=== PATIENT | male | born 1985 | race Two or more races ===

== ENCOUNTER 2025-03-16 12:16 | Emergency (ER) | payer OTHER, SELFPAY ==
[2025-03-16 12:51] VITALS: BP 131/79; PULSE 71; RESP 18; TEMP 37.2; O2SAT 98; BMI 27.7
--- NOTE | 2025-03-16 12:55 | XR_ITS ---
Examination: Lumbar spine 3 views Technique one AP lateral coned lateral lower lumbar spine 3 views Date and time: March 16, 2025 12:21 PM INDICATIONS: Patient fell 2 days ago with injury to the lower back, lower back pain. FINDINGS: Adequate alignment lumbar vertebral bodies. No lumbar fracture. Mild distention posteriorly L5-S1. IMPRESSION: No lumbar fracture.
--- NOTE | 2025-03-16 15:55 | PD.EDBACK ---
ED Back Injury Pain RME/HPI General Chief Complaint: Back Pain/Injury Stated Complaint: LOWER BACK PAIN, FELL AT WORK, SENT BY BOSS Time Seen by Provider: 03/16/25 12:52 Source: patient Arrival date/time: 03/16/25 12:16 40-year-old male with no known medical history presents to the emergency room with a chief complaint of tenderness and pain to his lumbar area of his spine after a fall that occurred at work 1 hour ago Mode of arrival: ambulatory Limitations: no limitations Related Data Allergies Allergy/AdvReac Type Severity Reaction Status Date / Time No Known Allergies Allergy Verified 03/16/25 12:18 Review of Systems Review of Systems Systems Reviewed: All systems reviewed, normal except as documented Constitutional Constitutional: Reports system reviewed and no additional complaints, except as documented, Denies fatigue, Denies fever(s), Denies headache(s) and Denies weakness Eyes Eyes: Reports system reviewed and no additional complaints, except as documented, Denies blurry vision and Denies change in vision ENT Ears, Nose, Mouth, and Throat: Reports system reviewed and no additional complaints, except as documented, Denies otalgia, Denies headache(s), Denies nasal congestion, Denies throat swelling and Denies vertigo Cardiovascular Cardiovascular: Reports system reviewed and no additional complaints, except as documented, Denies chest pain, Denies dyspnea and Denies dyspnea on exertion Respiratory Respiratory: Reports system reviewed and no additional complaints, except as documented, Denies chest congestion, Denies cough, Denies dyspnea, Denies dyspnea on exertion and Denies wheezing Gastrointestinal Gastrointestinal: Reports system reviewed and no additional complaints, except as documented, Denies abdominal pain, Denies cramping, Denies nausea and Denies vomiting Genitourinary Genitourinary: Reports system reviewed and no additional complaints, except as documented, Denies dysuria and Denies hematuria Musculoskeletal Musculoskeletal: Reports system reviewed and no additional complaints, except as documented and Reports back pain Integumentary/Breasts Skin/Breast: Reports system reviewed and no additional complaints, except as documented and Denies wounds Neurologic Neurologic: Reports system reviewed and no additional complaints, except as documented, Denies confusion, Denies headache(s), Denies lack of coordination, Denies vertigo and Denies weakness Psychiatric Psychiatric: Reports system reviewed and no additional complaints, except as documented, Denies anxiety, Denies confusion, Denies depression, Denies paranoia, Denies suicidal ideation and Denies tactile hallucinations Endocrine Endocrine: Reports system reviewed and no additional complaints, except as documented and Denies fatigue Hematologic/Lymphatic Hematologic/Lymphatic: Reports system reviewed and no additional complaints, except as documented and Denies lymphadenopathy Allergic/Immunologic Allergic/Immunologic: Reports system reviewed and no additional complaints, except as documented, Denies throat swelling, Denies urticaria and Denies wheezing Past Medical History Social History SMOKING STATUS: Never smoker ED Exam General Limitations: Present no limitations General appearance: Present alert and in no apparent distress Head Head exam: Present atraumatic Eye Eye exam: Present normal appearance, PERRL and EOMI ENT ENT exam: Present normal exam, normal oropharynx and mucous membranes moist Neck Neck exam: Present normal inspection, full ROM and trachea midline Chest Chest inspection: Present normal inspection and symmetric chest wall rise Respiratory Respiratory exam: Present normal lung sounds bilaterally Cardiovascular Cardiovascular exam: Present regular rate, normal rhythm and normal heart sounds Abdominal Exam Abdominal exam: Present soft and normal bowel sounds; Absent distention, tenderness, guarding or rebound Extremities Exam Extremities exam: Present normal inspection and full ROM Back Exam Back exam: Present normal inspection, full ROM, tenderness and vertebral tenderness; Absent CVA tenderness (R), CVA tenderness (L), paraspinal tenderness, sciatic notch tenderness (R) or sciatic notch tenderness (L) Neurological Exam Neurological exam: Present alert, oriented X3, CN II-XII intact, normal gait and reflexes normal; Absent motor sensory deficit Psychiatric Psychiatric exam: Present normal affect and normal mood Skin Skin exam: Present warm, dry, intact and normal color Course Quality Measures none Orders Category Date Time Status XR lumbar spine 2-3V Stat Exams 03/16/25 12:55 Completed Vital Signs Vital signs: Vital Signs Temperature 99 F 03/16/25 12:51 Pulse Rate 71 03/16/25 12:51 Respiratory Rate 18 03/16/25 12:51 Blood Pressure 131/79 H 03/16/25 12:51 Pulse Oximetry (%) 98 03/16/25 12:51 Oxygen Delivery Method Room Air 03/16/25 12:51 Back Pain / Injury MDM Narrative MDM Narrative:: 40-year-old male with no known medical history presents to the emergency room with a chief complaint of tenderness and pain to his lumbar area of his spine after a fall that occurred at work 1 hour ago Patient is hemodynamically stable and in no apparent distress Physical examination shows tenderness and pain with palpation of the lumbar area of his spine. The patient denies any saddle anesthesia, any loss of bowel or bladder function, or any numbness to the lower extremities. The patient has a normal steady gait. X-ray of the lumbar spine was completed and was negative for any acute lumbar fracture Patient was discharged and educated to follow-up with primary care provider in the next 24 to 48 hours and return to the emergency room for any evidence of worsening signs or symptoms Patient data External records reviewed:: [facility] previous records Clinical information provided by:: patient Social determinants that could affect healthcare access:: none Patient has the following chronic illnesses:: No chronic illness How is presenting disease/condition affected by chronic disease/condition?: no chronic disease Evaluation data The following diagnostics were reviewed and interpreted by me:: lab results and radiology exam(s) Lab and/or radiology exams considered but not ordered:: Labs and radiology exams considered and ordered Interpretation Summary: X-ray lumbar-FINDINGS: Adequate alignment lumbar vertebral bodies. No lumbar fracture. Mild distention posteriorly L5-S1. IMPRESSION: No lumbar fracture. Medications / Prescriptions Medications or Prescriptions considered but not ordered:: N/A Medication administrations:: N/A Consultations Consultation(s) initiated? (list below): No Diagnosis Differential diagnosis back pain/injury: lumbar radiculopathy, sciatica, strain of lumbar region and discitis Most likely diagnosis given after review of the tests above:: Strain of lumbar region Admission Indicated Admission indicated?: not indicated Admission Request Was there a request for admission?: No Disposition Plan Disposition Plan: Discharge Discharge Attestation Discharge Attestation: The patient and all family members were given an opportunity to ask questions and understood the discharge instructions. Discharge instructions specifically effects, indications for sooner follow up or return to the emergency department, and the expected course of current diagnosis. Patient condition: Stable Discharge Plan Plan Patient Disposition: HOME (Self Care) Discharge Disposition comment: Stable Prescriptions/Referrals Referrals: Davin Cassidy MD [Primary Care Provider] - In 1 week Problem List Clinical Impression: Strain of lumbar region Patient/Caregiver Discharge Instructions Education Materials: ED Back Sprain/Strain Additional Instructions: Por favor, consulte con andrade m?dico de cabecera en las pr?ximas 24 a 48 horas. Se realiz? sandoval radiograf?a de andrade columna vertebral y el resultado fue negativo para cualquier fractura o dislocaci?n aguda. Si hay alguna evidencia de empeoramiento de los signos o s?ntomas, regrese a la yang de emergencias inmediatamente. Print Language: Korean Stand Alone Forms: Carleen Award Info., Patient Portal Info Letter PA/EMERGENCY MANAGEMENT CONSULTANT Supervising Physician PA/EMERGENCY MANAGEMENT CONSULTANT Supervising Physician: Dr. STAPLES
== END 2025-03-16 16:05 | disposition home or self-care (01) ==
PROVIDERS: Emergency Provider Emergency Medicine; PCP Family Medicine
DX: S39.012A Strain of muscle, fascia and tendon of lower back, initial encounter (principal); W19.XXXA Unspecified fall, initial encounter; Y93.89 Activity, other specified; Y99.0 Civilian activity done for income or pay
CPT/HCPCS: 72100; 99283